=== PATIENT | male | born 1960 | race Caucasian/White ===

== ENCOUNTER 2019-08-23 10:02 | Inpatient (IN) | payer BC, MEDICARE ==
[~2019-08-23] VITALS: Ht 182.9 cm; Wt 96.9 kg
[2019-08-23 10:54] LABS: BASOPHILS % (AUTO) 0.4 % (0-1); EOSINOPHILS # (AUTO) 0.1 X10'3 (0-0.9); EOSINOPHILS % (AUTO) 0.8 % (0-6); HEMATOCRIT 43.7 % (42.0-52.0); HEMOGLOBIN 14.6 g/dl (14.0-17.9); LYMPHOCYTES # (AUTO) 0.9 X10'3 (1.1-4.8); LYMPHOCYTES % (AUTO) 10.6 % (21-51); MEAN CORPUSCULAR HEMOGLOBIN 30.4 PG (27.0-31.0); MEAN CORPUSCULAR HGB CONC 33.3 g/dL (33.0-36.5); MEAN CORPUSCULAR VOLUME 91.3 FL (78-98); MONOCYTES # (AUTO) 0.7 X10'3 (0-0.9); MONOCYTES % (AUTO) 8.1 % (2-12); NEUTROPHILS # (AUTO) 6.9 X10'3 (1.8-7.7); NEUTROPHILS % (AUTO) 80.1 % (42-75); PLATELET COUNT 204 X10'3 (140-440); RED BLOOD COUNT 4.79 X10'6 (4.70-6.10); RED CELL DISTRIBUTION WIDTH 14.2 % (11.5-14.5); WHITE BLOOD COUNT 8.6 X10'3 (4.5-11.0)
[2019-08-23 10:56] LABS: CLARITY,URINE SLIGHTLY CLOUDY (Clear); COLOR,URINE YELLOW (Yellow); GLUCOSE, URINE NEGATIVE (Neg); KETONES,URINE TRACE mg/dl (Neg); LEUKOCYTE ESTERASE ,URINE NEGATIVE (Neg); NITRITES, URINE NEGATIVE (Neg); OCCULT BLOOD,URINE SMALL (Neg); PROTEIN,URINE NEGATIVE (Neg); UROBILINOGEN,URINE 0.2 E.U/dL (0.2-1.0)
[2019-08-23 11:02] LABS: UA COLLECTION TYPE VOIDED
[2019-08-23 11:03] LABS: BACTERIA,URINE FEW /HPF (Neg); RBC,URINE 0-2 /HPF (0-2); SQUAMOUS EPITHELIAL CELL,UR FEW /LPF (FEW); WBC,URINE 0-4 /HPF (0-4)
[2019-08-23 11:09] LABS: ALANINE AMINOTRANSFERASE 19 U/L (12-78); ALBUMIN 2.6 G/DL (3.4-5.0); ALBUMIN/GLOBULIN RATIO 0.6 (1.1-1.5); ALKALINE PHOSPHATASE 66 IU/L (46-116); AMYLASE 116 U/L (25-115); ANION GAP 7 (8-16); ASPARTATE AMINO TRANSFERASE 12 U/L (10-37); BILIRUBIN,TOTAL 0.5 MG/DL (0.1-1.0); BLOOD UREA NITROGEN 14 MG/DL (7-18); BUN/CREATININE RATIO 11.4 (5.4-32.0); CALCIUM 8.7 MG/DL (8.5-10.1); CHLORIDE 103 MMOL/L (99-107); CREATININE 1.23 MG/DL (0.60-1.10); GLUCOSE 75 MG/DL (70-104); LIPASE 1059 U/L (73-393); POTASSIUM 3.7 MMOL/L (3.5-5.1); SODIUM 139 MMOL/L (135-145); TOTAL CARBON DIOXIDE 29.3 MMOL/L (24-32); TOTAL PROTEIN 6.9 G/DL (6.4-8.2); eGFR 60 ML/MIN
[2019-08-23] MEDS ORDERED: LISI-600 PO (12:16)
[2019-08-23] MEDS ORDERED: CITA40TA22 PO (12:16)
[2019-08-23] MEDS ORDERED: ZOLP10TA PO (12:16)
[2019-08-23] MEDS ORDERED: LEVO175T2 PO (12:16)
[2019-08-23] MEDS ORDERED: acetaminophen 325mg tablet PO ONE (12:25)
[2019-08-23] MEDS ORDERED: PEG 3350/Na sulf,bicarb,Cl/KCl oral sol 4 liter bottle PO ONE (13:35)
[2019-08-23] MEDS ORDERED: potassium CL 10mEq/100ml bag 100 ML IV PRN (13:40)
[2019-08-23] MEDS ORDERED: ondansetron/PF 4mg/2ml inj IV PRN (13:40)
[2019-08-23] MEDS ORDERED: acetaminophen 325mg tablet PO PRN (13:40)
[2019-08-23] MEDS ORDERED: magnesium hydroxide 30ml (MOM) UD suspension PO PRN (13:40)
[2019-08-23] MEDS ORDERED: magnesium 4gm in 100ml NS 100 ML IV PRN (13:40)
[2019-08-23] MEDS ORDERED: potassium Cl 20 mEq SR tablet PO PRN ×2 (13:40)
[2019-08-23] MEDS ORDERED: magnesium 2GM in 50ml NS 50 ML IV PRN (13:40)
[2019-08-23] MEDS ORDERED: mag hydrox/Alum hydrox/simeth 30ml oral suspension PO PRN (13:40)
[2019-08-23] MEDS ORDERED: zolpidem 5mg tablet PO PRN (13:45)
[2019-08-23] MEDS: normal saline 1000ml 1,000 ML IV SCH ×2 (14:16→23:35)
--- NOTE | 2019-08-23 14:45 | NUR ---
RECEIVED REPORT FROM KORI NEELY. AWAITING PATIENT ARRIVAL TO ROOM 348B.
[2019-08-23 15:20] VITALS: BP 135/69
--- NOTE | 2019-08-23 15:20 | NUR ---
Received patient to room 359a. Patient is alert and oriented in no apparent distress. Patient does c/o pain / abd but states, "I'm feeling good" at this time. Patient oriented to room and call light. Bed is low and locked and call light placed within patient's reach.
--- NOTE | 2019-08-23 18:03 | NUR ---
Problems reprioritized. Patient report given, questions answered & plan of care reviewed with FABRICIO Bautista RN.
--- NOTE | 2019-08-23 18:05 | NUR ---
Patient in room [facility]. I have received report from KORI Helton and had the opportunity to ask questions and assume patient care.
[2019-08-23] MEDS ORDERED: TEST200V10 IM (19:09)
[2019-08-23] MEDS: K and/or MAG REPLACEMENT MC SCH (19:14)
--- NOTE | 2019-08-23 19:16 | NUR ---
Added testosterone injection to med rec as the patient forgot to provide info to MD. Receives every two weeks and had last injection on Monday 08/21.
[2019-08-23 19:39] VITALS: BP 143/65
--- NOTE | 2019-08-23 21:03 | NUR ---
Small liquid BM sent to lab.
[2019-08-23] MEDS: acetaminophen 325mg tablet PO PRN (23:34)
[2019-08-23 23:58] VITALS: BP 140/71
[2019-08-24] VITALS (8 sets, daily range): BP systolic 127–170; BP diastolic 68–91
--- NOTE | 2019-08-24 01:22 | NUR ---
Provided hot pack and extra pillow for pain and comfort.
[2019-08-24 06:04] LABS: BASOPHILS % (AUTO) 0.5 % (0-1); EOSINOPHILS # (AUTO) 0.1 X10'3 (0-0.9); EOSINOPHILS % (AUTO) 1.1 % (0-6); HEMATOCRIT 40.3 % (42.0-52.0); HEMOGLOBIN 13.6 g/dl (14.0-17.9); LYMPHOCYTES # (AUTO) 1.2 X10'3 (1.1-4.8); LYMPHOCYTES % (AUTO) 14.5 % (21-51); MEAN CORPUSCULAR HEMOGLOBIN 30.5 PG (27.0-31.0); MEAN CORPUSCULAR HGB CONC 33.7 g/dL (33.0-36.5); MEAN CORPUSCULAR VOLUME 90.4 FL (78-98); MEAN PLATELET VOLUME 7.1 FL (7.4-10.4); MONOCYTES # (AUTO) 0.8 X10'3 (0-0.9); MONOCYTES % (AUTO) 9.7 % (2-12); NEUTROPHILS % (AUTO) 74.2 % (42-75); PLATELET COUNT 217 X10'3 (140-440); RED BLOOD COUNT 4.45 X10'6 (4.70-6.10); RED CELL DISTRIBUTION WIDTH 14.1 % (11.5-14.5); WHITE BLOOD COUNT 8.1 X10'3 (4.5-11.0)
--- NOTE | 2019-08-24 06:18 | NUR ---
Problems reprioritized. Patient report given, questions answered & plan of care reviewed with KORI Petit.
[2019-08-24 06:30] LABS: ALANINE AMINOTRANSFERASE 19 U/L (12-78); ALBUMIN 2.3 G/DL (3.4-5.0); ALBUMIN/GLOBULIN RATIO 0.6 (1.1-1.5); ALKALINE PHOSPHATASE 63 IU/L (46-116); ANION GAP 9 (8-16); ASPARTATE AMINO TRANSFERASE 11 U/L (10-37); BILIRUBIN,TOTAL 0.4 MG/DL (0.1-1.0); BLOOD UREA NITROGEN 12 MG/DL (7-18); BUN/CREATININE RATIO 10.4 (5.4-32.0); CALCIUM 8.5 MG/DL (8.5-10.1); CHLORIDE 106 MMOL/L (99-107); CREATININE 1.15 MG/DL (0.60-1.10); GLUCOSE 70 MG/DL (70-104); MAGNESIUM 1.8 MG/DL (1.5-2.4); POTASSIUM 3.4 MMOL/L (3.5-5.1); SODIUM 142 MMOL/L (135-145); TOTAL CARBON DIOXIDE 26.6 MMOL/L (24-32); TOTAL PROTEIN 6.3 G/DL (6.4-8.2); eGFR 65 ML/MIN
--- NOTE | 2019-08-24 06:40 | NUR ---
Patient in room [facility]. I have received report from Rafaela Bautista RN and had the opportunity to ask questions and assume patient care.
[2019-08-24] MEDS: K and/or MAG REPLACEMENT MC SCH ×2 (07:05→20:00)
[2019-08-24] MEDS ORDERED: levoTHYROXINE 175mcg tablet PO SCH (08:00)
[2019-08-24] MEDS: enoxaparin 40mg/0.4ml syringe SQ SCH (08:00)
[2019-08-24] MEDS: lisinopril 20mg tablet PO SCH (08:46)
[2019-08-24] MEDS: normal saline 1000ml 1,000 ML IV SCH ×2 (08:46→21:06)
[2019-08-24] MEDS: citalopram 20mg tablet PO SCH (08:46)
[2019-08-24] MEDS: potassium CL 10mEq/100ml bag 100 ML IV PRN ×4 (08:48→18:10)
[2019-08-24 08:52] LABS: LIPASE 499 U/L (73-393)
[2019-08-24] MEDS: acetaminophen 325mg tablet PO PRN ×2 (08:55→23:59)
[2019-08-24] MEDS ORDERED: MIDAZolam 5mg/5ml vial ONE (11:06)
[2019-08-24] MEDS ORDERED: fentaNYL/PF 50MCG/1 ML 2ML syringe ONE (11:06)
--- NOTE | 2019-08-24 17:46 | NUR ---
Patient back from GI lab, IV fluids restarted, VSS. Patient in no apparent distress. Addendum: 08/24/19 at 1747 by Marisabel Smith RN This was at 1400
--- NOTE | 2019-08-24 18:38 | NUR ---
Problems reprioritized. Patient report given, questions answered & plan of care reviewed with Raina RN.
[2019-08-25] VITALS: BP 142/67
[2019-08-25] MEDS: normal saline 1000ml 1,000 ML IV SCH ×2 (05:37→10:12)
[2019-08-25 05:43] LABS: BASOPHILS # (AUTO) 0.1 X10'3 (0-0.2); BASOPHILS % (AUTO) 0.8 % (0-1); EOSINOPHILS # (AUTO) 0.1 X10'3 (0-0.9); EOSINOPHILS % (AUTO) 1.4 % (0-6); HEMATOCRIT 41.6 % (42.0-52.0); HEMOGLOBIN 13.8 g/dl (14.0-17.9); LYMPHOCYTES # (AUTO) 1.1 X10'3 (1.1-4.8); LYMPHOCYTES % (AUTO) 13.4 % (21-51); MEAN CORPUSCULAR HEMOGLOBIN 30.3 PG (27.0-31.0); MEAN CORPUSCULAR HGB CONC 33.3 g/dL (33.0-36.5); MEAN CORPUSCULAR VOLUME 91.2 FL (78-98); MEAN PLATELET VOLUME 6.9 FL (7.4-10.4); MONOCYTES # (AUTO) 0.7 X10'3 (0-0.9); NEUTROPHILS # (AUTO) 6.1 X10'3 (1.8-7.7); NEUTROPHILS % (AUTO) 75.4 % (42-75); PLATELET COUNT 224 X10'3 (140-440); RED BLOOD COUNT 4.56 X10'6 (4.70-6.10); RED CELL DISTRIBUTION WIDTH 14.5 % (11.5-14.5); WHITE BLOOD COUNT 8.1 X10'3 (4.5-11.0)
[2019-08-25 06:12] LABS: ALANINE AMINOTRANSFERASE 16 U/L (12-78); ALBUMIN 2.2 G/DL (3.4-5.0); ALBUMIN/GLOBULIN RATIO 0.6 (1.1-1.5); ALKALINE PHOSPHATASE 61 IU/L (46-116); ANION GAP 11 (8-16); ASPARTATE AMINO TRANSFERASE 14 U/L (10-37); BILIRUBIN,TOTAL 0.3 MG/DL (0.1-1.0); BLOOD UREA NITROGEN 8 MG/DL (7-18); BUN/CREATININE RATIO 7.7 (5.4-32.0); CALCIUM 8.7 MG/DL (8.5-10.1); CHLORIDE 105 MMOL/L (99-107); CREATININE 1.04 MG/DL (0.60-1.10); GLUCOSE 69 MG/DL (70-104); MAGNESIUM 1.7 MG/DL (1.5-2.4); POTASSIUM 3.8 MMOL/L (3.5-5.1); SODIUM 139 MMOL/L (135-145); TOTAL CARBON DIOXIDE 23.2 MMOL/L (24-32); TOTAL PROTEIN 6.1 G/DL (6.4-8.2); eGFR 73 ML/MIN
[2019-08-25 07:00] VITALS: BP 150/84
[2019-08-25] MEDS: K and/or MAG REPLACEMENT MC SCH (08:00)
[2019-08-25] MEDS: enoxaparin 40mg/0.4ml syringe SQ SCH (08:00)
[2019-08-25] MEDS ORDERED: levoTHYROXINE 100mcg tablet PO SCH (08:00)
[2019-08-25] MEDS: citalopram 20mg tablet PO SCH (08:50)
[2019-08-25] MEDS: lisinopril 20mg tablet PO SCH (08:51)
[2019-08-25] MEDS: acetaminophen 325mg tablet PO PRN (08:59)
[2019-08-25 12:00] VITALS: BP 138/76
[2019-08-25] MEDS ORDERED: METR-159 PO (13:19)
[2019-08-25] MEDS ORDERED: LEVO100T9 PO (13:19)
== END 2019-08-25 19:06 | disposition home or self-care (01) | DRG 392 ==
LOC: ER 10:03 → ED HOLD 13:37 → SUR 3N 14:53
PROVIDERS: ADMIT Family Medicine; ATTEND Internal Medicine
PROC: 0DBP8ZX Excision of Rectum, Via Natural or Artificial Opening Endoscopic, Diagnostic (ICD-10-PCS; principal; 2019-08-24)
PROC: 0DBN8ZX Excision of Sigmoid Colon, Via Natural or Artificial Opening Endoscopic, Diagnostic (ICD-10-PCS; 2019-08-24)
DX: K52.9 Noninfective gastroenteritis and colitis, unspecified (principal); E66.9 Obesity, unspecified; F32.9 Major depressive disorder, single episode, unspecified; I10 Essential (primary) hypertension; E05.90 Thyrotoxicosis, unspecified without thyrotoxic crisis or storm; K63.5 Polyp of colon; R53.82 Chronic fatigue, unspecified; R74.8 Abnormal levels of other serum enzymes; Z68.29 Body mass index [BMI] 29.0-29.9, adult; Z79.899 Other long term (current) drug therapy
CPT/HCPCS: 36415; 45380; 45385; 74176; 80053; 81001; 82150; 83690; 83735; 84443; 85025; 87045; 87046; 87081; 88305; 89055; 99152; 99153; 99285; A4620; C1773; G0378; J2250; J3010; J3480; J7030; J7040